=== PATIENT | female | born 1940 | race Caucasian/White ===

== ENCOUNTER 2016-05-17 14:22 | Emergency (ER) | payer MEDICARE ==
[2016-05-17 14:36] VITALS: BP 198/91; PULSE 90; TEMP 98.3; BMI 24.1
[2016-05-17 14:57] LABS: AUTOMATED BASOPHIL 0.8 % (0-2); AUTOMATED EOSINOPHIL 1.8 % (0-5); AUTOMATED LYMPH 24.4 % (17-44); AUTOMATED MONOCYTE 4.8 % (3-10); AUTOMATED NEUTROPHIL 68.2 % (45-76); MPV 8.3 fL (7.4-10.4)
[2016-05-17 15:08] LABS: PARTIAL THROMB. TIME 24.8 SEC (22-35)
[2016-05-17 15:15] LABS: BLOOD UREA NITROGEN 15 MG/DL (7-17); CALCIUM 10.2 MG/DL (8.4-10.2); CALCULATED OSMOLALITY 278 MOs/Kg (270-290); CHLORIDE 101 mEq/L (98-107); GLUCOSE 100 MG/DL (70-99); SODIUM LEVEL 144 mEq/L (137-146); TOTAL PROTEIN 10.2 G/DL (6.3-8.2)
== END 2016-05-17 17:04 | disposition left against medical advice (07) ==
LOC: ED 14:22
DX: R10.10 Upper abdominal pain, unspecified (principal); R11.10 Vomiting, unspecified; M25.552 Pain in left hip
CPT/HCPCS: 80053; 83880; 84484; 85025; 85610; 85730; 93005